=== PATIENT | male | born 1975 | race Two or more races ===

== ENCOUNTER 2019-07-04 14:42 | Emergency (ER) | payer OTHER ==
[~2019-07-04] VITALS: Ht 175.3 cm; Wt 109.5 kg
[2019-07-04 14:57] VITALS: BP 129/86
[2019-07-04] MEDS ORDERED: LIDOCAINE-MPF 1%, 5ML ONE ×2 (15:18)
[2019-07-04] MEDS ORDERED: LIDOCAINE-MPF 1%, 5ML INFIL ONE (15:30)
[2019-07-04] MEDS ORDERED: NEOSPORIN OINT. PKT 1 PACKET ONE (16:16)
== END 2019-07-04 16:40 | disposition home or self-care (01) ==
LOC: ED 16:36
DX: S01.112A Laceration without foreign body of left eyelid and periocular area, initial encounter (principal); W18.30XA Fall on same level, unspecified, initial encounter; Y93.89 Activity, other specified; Y92.89 Other specified places as the place of occurrence of the external cause; Y99.8 Other external cause status
CPT/HCPCS: 12011; 99283

== ENCOUNTER 2019-07-11 08:41 | Emergency (ER) | payer OTHER ==
[~2019-07-11] VITALS: Ht 175.3 cm; Wt 108.4 kg
[2019-07-11 08:44] VITALS: BP 111/72
--- NOTE | 2019-07-11 10:04 | NUR ---
Patient/Caregiver given discharge instructions and they have confirmed that they understand the instructions. Patient ambulatory with steady gait.
== END 2019-07-11 10:06 | disposition home or self-care (01) ==
LOC: ED 09:45
DX: S01.312D Laceration without foreign body of left ear, subsequent encounter (principal); X58.XXXD Exposure to other specified factors, subsequent encounter
CPT/HCPCS: 99281